=== PATIENT | male | born 1940 | race Caucasian/White ===

== ENCOUNTER 2016-04-17 11:31 | Inpatient (IN) | payer OTHER ==
[~2016-04-17] VITALS: Ht 182.9 cm; Wt 81.8 kg
[~2016-04-17 11:31] MED LIST: ACET-1311 PO; ALFU10TA30 PO; BISA10SU3 PR; CARB50TA3 PO; CGN5X PO; CHOL200010 PO; DOCU-94 PO; DPKSR500 PO; EXLP46 TOP; FURO-85 PO; LEVO125T72 PO; LORA-741 PO; LVQ750 PO; MOML PO; POTA1CAP2 PO; PRVIN525X INH; PYRI50TA77 PO; QUET1TAB34 PO
--- NOTE | 2016-04-17 12:27 | EMERGENCY ROOM VISIT NOTE ---
History Report prepared by Doug: Arden Dumont Under the Supervision of: Dr. Christie Benz M.D. First contact with patient: 12:14 Chief Complaint: EDEMA TO EXTREMITY Stated Complaint: EDEMA TO LEGS History of Present Illness The patient is a 75 year old male who presents to the Emergency Room via ALS from [facility]. He was sent to the ED for persistent right leg edema that was noticed today after he showered. The nursing staff notes that both lower extremities are swollen, but the right is worse than the left currently. The patient's HPI is limited due to dementia. Source of History: nursing staff History Limited By: dementia Onset: today after shower Position: leg (bilateral) Timing: other (persistent) Note: Other associated symptoms: swelling to both lower legs/ edema Review of Systems The patient's ROS is limited due to dementia. Past Medical & Surgical Medical Problems: (1) Bipolar 1 disorder (2) BPH (benign prostatic hyperplasia) (3) Dementia (4) Hypothyroidism (5) OCD (obsessive compulsive disorder) (6) Parkinson disease Surgical Problems: (1) History of hemorrhoidectomy Family History No pertinent family history Social History Smoking Status: Never Smoker Marital Status: Housing Status: care home Occupation Status: retired Current/Historical Medications Scheduled Benztropine Mesylate (Benztropine Mesylate), 1 TAB PO BID Cholecalciferol (Vitamin D), 2,000 INTUNIT PO QAM Divalproex Sodium (Depakote Delay Rel), 500 MG PO AMPM Furosemide (Lasix), 20 MG PO QAM Levothyroxine Sodium (Synthroid), 125 MCG PO QAM Lorazepam (Ativan), 0.5 MG PO DIRECTED Olanzapine (Zyprexa), 3.75 MG PO HS Potassium Chloride (Potassium Chloride Er), 10 MEQ PO QAM Pyridoxine Hcl (Vitamin B 6), 1 TAB PO BID Quetiapine Fumarate (Seroquel), 200 MG PO HS Senna (Senokot), 1 TAB PO DAILY Scheduled PRN Acetaminophen (Tylenol), 650 MG PO Q4 PRN for Pain or Fever Albuterol Sulf (Albuterol Sulfate), 1 VIAL INH Q4H PRN for Shortness of Breath Allergies Coded Allergies: Bacitracin (Verified Allergy, Unknown, rash, 04/17/16) Polymyxin B (Verified Allergy, Unknown, rash, 04/17/16) Oseltamivir (Verified Adverse Reaction, Unknown, mental issues, 04/17/16) Tartrazine (Verified Adverse Reaction, Unknown, mental issues, 04/17/16) Zaleplon (Verified Adverse Reaction, Unknown, mental issues, 04/17/16) Physical Exam Vital Signs Date Time Temp Pulse Resp B/P Pulse Ox O2 Delivery O2 Flow Rate FiO2 04/17/16 15:56 87 20 146/72 100 Room Air 04/17/16 14:07 90 20 115/77 99 Room Air 04/17/16 12:48 82 20 135/78 100 Room Air 04/17/16 12:06 82 04/17/16 11:36 36.5 83 18 135/78 98 Room Air Physical Exam Vital signs reviewed. General: Chronically illl-appearing male, in no significant distress. HEENT: No scleral icterus, PERRLA, neck supple. Atraumatic. Cardiovascular: Regular rate and rhythm, no extra sounds. Pulmonary: Clear to auscultation bilaterally, normal work of breathing. Abdomen: Soft, nontender, nondistended, positive bowel sounds. Musculoskeletal: Marked edema of the right greater than left lower extremity, pitting. Neurologic: Patient awake alert and oriented x 3, full strength in all 4 extremities. Cranial nerves 2 through 12 grossly intact. Baseline tremors, increased muscle tone on the upper extremities. . Skin: Warm, dry, no rash Medical Decision & Procedures ER Provider Diagnostic Interpretation: Other radiology results as stated below per my review and radiologist interpretation: BILATERAL LOWER EXTREMITY VENOUS DOPPLER CLINICAL HISTORY: R>L lower extremity edema, DVT COMPARISON STUDY: No previous studies for comparison. TECHNIQUE: Sonography of the deep venous system of the bilateral lower extremities was performed. Compression and augmentation were evaluated. FINDINGS: There is extensive deep venous thrombus within the right lower extremity with thrombus within the right common femoral, superficial femoral and popliteal veins. The calf vessels were not well evaluated on this exam. Note was made of linear echogenic material within the left superficial femoral vein which is consistent with thrombus. This thrombus may be chronic. IMPRESSION: 1. Extensive deep venous thrombus within the right common femoral, superficial femoral and popliteal veins. 2. Linear thrombus within the left superficial femoral vein. This thrombus may be chronic. Electronically signed by: Tae Grier M.D. 04/17/2016 2:53 PM Dictated Date/Time: 04/17/2016 2:51 PM Laboratory Results Test 04/17/16 12:35 Activated Partial Thromboplast Time 27.5 SECONDS (21.0-31.0) Partial Thromboplastin Ratio 1.1 Total Bilirubin 0.6 mg/dl (0.2-1) Direct Bilirubin < 0.1 mg/dl (0-0.2) Aspartate Amino Transf (AST/SGOT) 15 U/L (15-37) Alanine Aminotransferase (ALT/SGPT) 16 U/L (12-78) Alkaline Phosphatase 71 U/L (45-117) Total Protein 8.4 gm/dl (6.4-8.2) Albumin 3.0 gm/dl (3.4-5.0) Laboratory results per my review. Medications Administered Medications (Trade) Dose Ordered Sig/Hang Route Start Time Stop Time Status Last Admin Dose Admin Enoxaparin Sodium (Lovenox Inj) 80 mg NOW ONCE SQ 04/17/16 15:30 04/17/16 15:31 DC 04/17/16 15:54 80 MG ECG Indication: other Rate (beats per minute): 81 Rhythm: sinus rhythm Findings: T-wave inversion (Anterolateral), prolonged QT (504) Comparison ECG Date: poor quality baseline for interpretation ED Course 1222: Past medical records reviewed. The patient was evaluated in room C5. A complete history and physical examination was performed. 1521: Ordered Lovenox 1 per kilo. 1530: At this time, I discussed the patient's case with Dr. Gonzalo Scott and she agreed to accept the patient for further evaluation. Medical Decision Differential diagnoses: Etiologies include cellulitis, DVT, dependent edema, or acute trauma. This pt was evaluated and appeared to be in no distress. Pt has dementia and repeats most questions. RLE is markedly more edematous than the left. Dopplers of bilateral LE reveals an extensive RLE DVT into the common femoral vein. A smaller, likely chronic thrombus noted on the left. 80 mg of lovenox was ordered SQ in ED. Pt was d/w the hospitalist service. He will be evaluated for further management. Consults Time Called: 1525 Consulting Physician: Dr. Gonzalo Scott Returned Call: 1530 At this time, I discussed the patient's case with Dr. Sánchez and she agreed to accept the patient for further evaluation. Impression Primary Impression: Deep vein thrombosis (DVT) of right lower extremity Scribe Attestation The scribe's documentation has been prepared under my direction and personally reviewed by me in its entirety. I confirm that the note above accurately reflects all work, treatment, procedures, and medical decision making performed by me. Departure Information Dispostion Being Evaluated By Hospitalist Referrals Azalea Chandra D.O. (PCP) Problem Qualifiers Primary Impression: Deep vein thrombosis (DVT) of right lower extremity Affected thrombotic vein of extremity: femoral Chronicity: acute Qualified Codes: I82.411 - Acute embolism and thrombosis of right femoral vein
[2016-04-17] MEDS ORDERED: SENN-61 PO (12:41)
[2016-04-17] MEDS ORDERED: QUET1TAB37 PO (12:41)
[2016-04-17] MEDS ORDERED: DIVA500T5 PO (12:41)
[2016-04-17] MEDS ORDERED: OLAN1TAB7 PO ×2 (12:41→16:23)
[2016-04-17 12:50] LABS: BASO % 0.7 %; BASO ABS # 0.04 K/uL (0-0.2); COMPLETE YES; EOS % 5.3 %; HEMATOCRIT 43.1 % (42-52); IG% 0.5 %; LYMPH % 21.4 %; MEAN CELL VOLUME 91.3 fL (80-100); MEAN CORPUSCULAR HEMOGLOBIN 30.9 pg (25-34); MEAN CORPUSCULAR HGB CONC 33.9 g/dl (32-36); MONO % 10.1 %; PLATELET COUNT 190 K/uL (130-400); RED BLOOD COUNT 4.72 M/uL (4.7-6.1); WHITE BLOOD COUNT 5.62 K/uL (4.8-10.8)
[2016-04-17 12:59] LABS: INR 1.4 (0.9-1.1); PARTIAL THROMBOPLASTIN RATIO 1.1; PROTHROMBIN TIME (PATIENT) 15.3 SECONDS (9.0-12.0)
[2016-04-17 13:10] LABS: BLOOD UREA NITROGEN 12 mg/dl (7-18); BUN/CREATININE RATIO 12.2 (10-20); CARBON DIOXIDE 26 mmol/L (21-32); CHLORIDE 104 mmol/L (98-107); GLUCOSE 77 mg/dl (70-99); POTASSIUM 4.3 mmol/L (3.5-5.1); SODIUM 141 mmol/L (136-145)
[2016-04-17 13:12] LABS: ALKALINE PHOSPHATASE 71 U/L (45-117); ALT/SGPT 16 U/L (12-78); AST/SGOT 15 U/L (15-37)
--- NOTE | 2016-04-17 14:54 | DIAGNOSTIC IMAGING REPORT ---
BILATERAL LOWER EXTREMITY VENOUS DOPPLER CLINICAL HISTORY: R>L lower extremity edema, DVT COMPARISON STUDY: No previous studies for comparison. TECHNIQUE: Sonography of the deep venous system of the bilateral lower extremities was performed. Compression and augmentation were evaluated. FINDINGS: There is extensive deep venous thrombus within the right lower extremity with thrombus within the right common femoral, superficial femoral and popliteal veins. The calf vessels were not well evaluated on this exam. Note was made of linear echogenic material within the left superficial femoral vein which is consistent with thrombus. This thrombus may be chronic. IMPRESSION: 1. Extensive deep venous thrombus within the right common femoral, superficial femoral and popliteal veins. 2. Linear thrombus within the left superficial femoral vein. This thrombus may be chronic. Electronically signed by: Tae Grier M.D. 04/17/2016 2:53 PM Dictated Date/Time: 04/17/2016 2:51 PM
[2016-04-17] MEDS ORDERED: ENOXAPARIN 80 MG/0.8 ML SYR SQ ONE (15:30)
[2016-04-17] MEDS ORDERED: ONDANSETRON INJ 2 MG/ML 2 ML VIAL IV PRN (16:30)
[2016-04-17] MEDS ORDERED: ACETAMINOPHEN 325 MG TAB PO PRN (16:30)
[2016-04-17] MEDS ORDERED: ALBUTEROL 0.083% NEBU SOLN 3 ML VIAL INH PRN (16:45)
[2016-04-17] MEDS ORDERED: LORAZEPAM 0.5 MG TAB PO PRN (16:45)
--- NOTE | 2016-04-17 17:15 | History and Physical ---
History & Physical Date & Time of Service: Apr 17, 2016 at 16:45 Chief Complaint: Edema To Legs Primary Care Physician: Azalea Chandra D.O. History of Present Illness Source: patient This is a 75 y/o male with PMHx of Parkinson's Dz, Dementia, Hypothyroidism and other problems as outlined below who presents to the ED from [facility] c/ o RLE edema for one day. History is difficult to obtain from patient due to his dementia therefore history is obtained from previous documentation. [facility] staff noticed patient's RLE was significantly swollen this morning. Pt was not complaining of any pain. Pt is not on any blood thinner and has no previous h/o DVT or PE. In the ED, vitals are stable. Saturating 100% on room air. labs reviewed are unremarkable.Bilat LE US + extensive DVT within the R common femoral, superficial femoral and popliteal veins. Pt also has linear thrombus within the L superior femoral vein which may be chronic. He will be admitted for further evaluation and treatment. Past Medical/Surgical History Medical Problems: (1) Bipolar 1 disorder Status: Chronic (2) BPH (benign prostatic hyperplasia) Status: Chronic (3) Dementia Status: Chronic (4) Hypothyroidism Status: Chronic (5) OCD (obsessive compulsive disorder) Status: Chronic (6) Parkinson disease Status: Chronic Surgical Problems: (1) History of hemorrhoidectomy Status: Chronic Family History No pertinent family history Social History Smoking Status: Former Smoker (quit 1970) Alcohol Use: none Drug Use: none Marital Status: Housing status: senior living ([facility]) Occupational Status: retired Immunizations History of Influenza Vaccine: Yes Influenza Vaccine Date: Dec 21, 2014 Multi-Drug Resistant Organisms History of MDRO: No Allergies Coded Allergies: Bacitracin (Verified Allergy, Unknown, rash, 04/17/16) Polymyxin B (Verified Allergy, Unknown, rash, 04/17/16) Oseltamivir (Verified Adverse Reaction, Unknown, mental issues, 04/17/16) Tartrazine (Verified Adverse Reaction, Unknown, mental issues, 04/17/16) Zaleplon (Verified Adverse Reaction, Unknown, mental issues, 04/17/16) Home Medications Scheduled Benztropine Mesylate (Benztropine Mesylate), 1 TAB PO BID Cholecalciferol (Vitamin D), 2,000 INTUNIT PO QAM Divalproex Sodium (Depakote Delay Rel), 500 MG PO AMPM Furosemide (Lasix), 20 MG PO QAM Levothyroxine Sodium (Synthroid), 125 MCG PO QAM Lorazepam (Ativan), 0.5 MG PO DIRECTED Olanzapine (Zyprexa), 3.75 MG PO HS Potassium Chloride (Potassium Chloride Er), 10 MEQ PO QAM Pyridoxine Hcl (Vitamin B 6), 1 TAB PO BID Quetiapine Fumarate (Seroquel), 200 MG PO HS Senna (Senokot), 1 TAB PO DAILY Scheduled PRN Acetaminophen (Tylenol), 650 MG PO Q4 PRN for Pain or Fever Albuterol Sulf (Albuterol Sulfate), 1 VIAL INH Q4H PRN for Shortness of Breath Review of Systems Unable to obtain ROS due to AMS Physical Exam Vital Signs Date Time Temp Pulse Resp B/P Pulse Ox O2 Delivery O2 Flow Rate FiO2 04/17/16 15:56 87 20 146/72 100 Room Air 04/17/16 14:07 90 20 115/77 99 Room Air 04/17/16 12:48 82 20 135/78 100 Room Air 04/17/16 12:06 82 04/17/16 11:36 36.5 83 18 135/78 98 Room Air General Appearance: WD/WN, no apparent distress, + pertinent finding (Pt is laying comfortably in bed ) Head: normocephalic, atraumatic Eyes: normal inspection ENT: hearing grossly normal Neck: supple Respiratory/Chest: chest non-tender, lungs clear (auscultated anteriorly), normal breath sounds, no respiratory distress Cardiovascular: regular rate, rhythm, no edema, no murmur Abdomen/GI: normal bowel sounds, non tender, soft Back: normal inspection Extremities/Musculoskelatal: no calf tenderness, + pertinent finding (RLE swelling extending from thigh into foot; skin appears mottled ) Neurologic/Psych: alert, + pertinent finding (dementia) Skin: normal color, warm/dry Diagnostics Laboratory Results Results Past 24 Hours Test 04/17/16 12:35 Range/Units White Blood Count 5.62 4.8-10.8 K/uL Red Blood Count 4.72 4.7-6.1 M/uL Hemoglobin 14.6 14.0-18.0 g/dL Hematocrit 43.1 42-52 % Mean Corpuscular Volume 91.3 80-100 fL Mean Corpuscular Hemoglobin 30.9 25-34 pg Mean Corpuscular Hemoglobin Concent 33.9 32-36 g/dl Platelet Count 190 130-400 K/uL Mean Platelet Volume 11.0 7.4-10.4 fL Neutrophils (%) (Auto) 62.0 % Lymphocytes (%) (Auto) 21.4 % Monocytes (%) (Auto) 10.1 % Eosinophils (%) (Auto) 5.3 % Basophils (%) (Auto) 0.7 % Neutrophils # (Auto) 3.48 1.4-6.5 K/uL Lymphocytes # (Auto) 1.20 1.2-3.4 K/uL Monocytes # (Auto) 0.57 0.11-0.59 K/uL Eosinophils # (Auto) 0.30 0-0.5 K/uL Basophils # (Auto) 0.04 0-0.2 K/uL RDW Standard Deviation 47.9 36.4-46.3 fL RDW Coefficient of Variation 14.2 11.5-14.5 % Immature Granulocyte % (Auto) 0.5 % Immature Granulocyte # (Auto) 0.03 0.00-0.02 K/uL Prothrombin Time 15.3 9.0-12.0 SECONDS Prothromb Time International Ratio 1.4 0.9-1.1 Activated Partial Thromboplast Time 27.5 21.0-31.0 SECONDS Partial Thromboplastin Ratio 1.1 Sodium Level 141 136-145 mmol/L Potassium Level 4.3 3.5-5.1 mmol/L Chloride Level 104 98-107 mmol/L Carbon Dioxide Level 26 21-32 mmol/L Anion Gap 11.0 3-11 mmol/L Blood Urea Nitrogen 12 7-18 mg/dl Creatinine 1.00 0.60-1.40 mg/dl Est Creatinine Clear Calc Drug Dose 70.1 ml/min Estimated GFR () 85.0 Estimated GFR (Non- 73.3 BUN/Creatinine Ratio 12.2 10-20 Random Glucose 77 70-99 mg/dl Calcium Level 9.0 8.5-10.1 mg/dl Total Bilirubin 0.6 0.2-1 mg/dl Direct Bilirubin < 0.1 0-0.2 mg/dl Aspartate Amino Transf (AST/SGOT) 15 15-37 U/L Alanine Aminotransferase (ALT/SGPT) 16 12-78 U/L Alkaline Phosphatase 71 45-117 U/L Total Protein 8.4 6.4-8.2 gm/dl Albumin 3.0 3.4-5.0 gm/dl Diagnostic Radiology BILAT LE US IMPRESSION: 1. Extensive deep venous thrombus within the right common femoral, superficial femoral and popliteal veins. 2. Linear thrombus within the left superficial femoral vein. This thrombus may be chronic. EKG EKG: NSR at 81 bpm with LVH and ST depression in anterior leads; ST depression is less pronounced when compared to EKG from 12/23/15 Impression Assessment and Plan BILATERAL DVT (R>L) pt presented from [facility] with RLE swelling; no prior h/o DVT/PE -admit to med/surg -vitals are stable; pt is saturating well on room air Bilat LE US + extensive DVT within the R common femoral, superficial femoral and popliteal veins. Pt also has linear thrombus within the L superior femoral vein which may be chronic (see above for full report) -will hold off on chest CT as patient is not SOB or hypoxic -start Coumadin; bridge with Lovenox for 5 days -monitor INR daily -apply [employer] bilat -monitor PARKINSON'S DISEASE -cont Sinemet DEMENTIA/OCD/BIPOLAR -cont Depakote, Seroquel, Cogentin and Zyprexa -pt follows with psych, Dr Owusu HYPOTHYROIDISM -cont levothyroxine DVT PROPHYLAXIS -starting Coumadin; bridging with Lovenox; monitor INR CODE STATUS -Patient is a DNR per senior living documentation DISPO -Expect to return to [facility] once medically stable. Pt seen in collaboration with Dr. Sánchez. Please see her addendum for further details. Thanks! ATTENDING ADDENDUM Record reviewed. Patient interviewed and examined. I agree with the assessment and plan as stated above. Mr. Romero was admitted for obs mainly because of the extensiveness of the swelling and clot, and with his history of dementia and other psych issues, to ensure he was stable on current therapy. Anticipate discharge to senior living tomorrow or following day. Care coordinated with Wendi Salazar PA-C. Please refer to her documentation for patient's history. Maria A Sánchez, Hospitalist Level of Care Med/Surg Resuscitation Status DO NOT RESUSCITATE VTE Prophylaxis VTE Risk Assessment Done? Y/N: Yes Risk Level: Moderate Given or contraindicated: Enoxaparin (Lovenox)SQ Social Service Consult Lives in Personal Care
[2016-04-17 19:50] VITALS: BP 150/78; PULSE 89; TEMP 36.5; O2SAT 97
[2016-04-17 19:51] VITALS: BP 150/78; PULSE 89; TEMP 36.5; O2SAT 97; Ht 182.9 cm; Wt 81.8 kg
[2016-04-17] MEDS ORDERED: WARFARIN SOD 5 MG TAB PO ONE (20:00)
[2016-04-17] MEDS ORDERED: BENZTROPINE MESYLATE 0.5 MG TAB PO SCH (21:00)
[2016-04-17] MEDS: PYRIDOXINE HCL 50 MG TAB PO SCH (21:19)
[2016-04-17] MEDS: DIVALPROEX SODIUM 500 MG DELAY RELEASE TAB PO SCH (21:19)
[2016-04-17] MEDS: QUETIAPINE FUMARATE 200 MG TAB PO SCH (21:19)
[2016-04-17] MEDS: OLANZAPINE 2.5 MG TAB PO SCH (21:20)
[2016-04-17] MEDS: BENZTROPINE MESYLATE 0.5 MG TAB PO SCH (21:20)
[2016-04-18 03:00] VITALS: O2SAT 97
[2016-04-18] MEDS: LEVOTHYROXINE 125 MCG TAB PO SCH (05:54)
[2016-04-18] MEDS: ENOXAPARIN 80 MG/0.8 ML SYR SQ SCH ×2 (05:56→19:33)
[2016-04-18 07:17] LABS: HEMATOCRIT 43.8 % (42-52); MEAN CELL VOLUME 91.3 fL (80-100); MEAN PLATELET VOLUME 11.1 fL (7.4-10.4); PLATELET COUNT 166 K/uL (130-400); WHITE BLOOD COUNT 4.38 K/uL (4.8-10.8)
[2016-04-18 07:22] LABS: INR 1.5 (0.9-1.1); PROTHROMBIN TIME (PATIENT) 16.1 SECONDS (9.0-12.0)
[2016-04-18 07:36] VITALS: BP 130/77; PULSE 72; TEMP 36.1; O2SAT 96
[2016-04-18 07:48] LABS: BUN/CREATININE RATIO 14.8 (10-20); CREATININE 0.98 mg/dl (0.60-1.40)
[2016-04-18] MEDS: SENNA 8.6 MG TAB PO SCH (07:53)
[2016-04-18] MEDS: FUROSEMIDE 20 MG TAB PO SCH (07:53)
[2016-04-18] MEDS: CHOLECALCIFEROL 1000 INTER.UNIT TAB PO SCH (07:54)
[2016-04-18] MEDS: BENZTROPINE MESYLATE 0.5 MG TAB PO SCH ×2 (07:54→20:36)
[2016-04-18] MEDS: DIVALPROEX SODIUM 500 MG DELAY RELEASE TAB PO SCH ×2 (07:54→20:36)
[2016-04-18] MEDS: PYRIDOXINE HCL 50 MG TAB PO SCH ×2 (07:54→20:36)
[2016-04-18] MEDS: POTASSIUM CHLORIDE 10 MEQ TABCR PO SCH (07:54)
[2016-04-18] MEDS ORDERED: INFLUENZA VIRUS QUAD VACCINE 0.5 ML SYR IM. ONE (08:00)
[2016-04-18] MEDS ORDERED: INFLUENZA ADMINISTRATION CHARGE ONE (08:00)
--- NOTE | 2016-04-18 14:36 | Progress Note ---
Internal Med Progress Note Date of Service: Apr 18, 2016. Provider Documentation: SUBJECTIVE: Patient is seen and examined. Could not obtain any information from patient- has dementia. Repeats the questions asked. OBJECTIVE: Vital Signs-as noted below Physical Exam: General Appearance:Moderately built and nourished, no apparent distress Head: normocephalic, Atraumatic Eyes: normal inspection, EOMI, PERRLA Neck: supple, no JVD, Trachea midline Respiratory/Chest: Normal breath sounds, CTA, No accessory muscle use Cardiovascular: S1, S2, No murmur Abdomen/GI:Soft, Non tender, Bowel sounds present Extremities/Musculoskelatal:RLE swelling extending from thigh into foot Neurologic/Psych:+ Dementia, no focal neurological deficits Skin: normal color, warm Lab data as noted below. ASSESSMENT & PLAN: BILATERAL DVT (R>L) Patient presented with RLE swelling; no prior h/o DVT/PE B/L LE US + extensive DVT within the R common femoral, superficial femoral and popliteal veins. Pt also has linear thrombus within the L superior femoral vein which may be chronic Continue Coumadin; bridge with Lovenox for 5 days monitor INR daily INR:1.5 today PARKINSON'S DISEASE continue Sinemet DEMENTIA/OCD/BIPOLAR continue Depakote, Seroquel, Cogentin and Zyprexa Follows with psych, Dr Owusu HYPOTHYROIDISM continue levothyroxine DVT PX On Coumadin and Lovenox CODE STATUS DNR per [facility] documentation DISPO Plan to DC to [facility] in next 48 hours if medically stable. Vital Signs: Date Time Temp Pulse Resp B/P Pulse Ox O2 Delivery O2 Flow Rate FiO2 04/18/16 08:00 Room Air 04/18/16 07:36 36.1 72 22 130/77 96 Room Air 04/18/16 03:00 97 Room Air 04/17/16 19:51 36.5 89 20 150/78 97 Room Air 04/17/16 19:50 36.5 89 20 150/78 97 Room Air 04/17/16 19:01 88 18 142/108 97 04/17/16 17:41 86 18 115/86 98 Room Air 04/17/16 16:56 89 04/17/16 15:56 87 20 146/72 100 Room Air Lab Results: Results Past 24 Hours Test 04/18/16 06:55 Range/Units White Blood Count 4.38 4.8-10.8 K/uL Red Blood Count 4.80 4.7-6.1 M/uL Hemoglobin 14.9 14.0-18.0 g/dL Hematocrit 43.8 42-52 % Mean Corpuscular Volume 91.3 80-100 fL Mean Corpuscular Hemoglobin 31.0 25-34 pg Mean Corpuscular Hemoglobin Concent 34.0 32-36 g/dl RDW Standard Deviation 48.3 36.4-46.3 fL RDW Coefficient of Variation 14.3 11.5-14.5 % Platelet Count 166 130-400 K/uL Mean Platelet Volume 11.1 7.4-10.4 fL Prothrombin Time 16.1 9.0-12.0 SECONDS Prothromb Time International Ratio 1.5 0.9-1.1 Sodium Level 142 136-145 mmol/L Potassium Level 4.0 3.5-5.1 mmol/L Chloride Level 106 98-107 mmol/L Carbon Dioxide Level 26 21-32 mmol/L Anion Gap 10.0 3-11 mmol/L Blood Urea Nitrogen 14 7-18 mg/dl Creatinine 0.98 0.60-1.40 mg/dl Est Creatinine Clear Calc Drug Dose 71.5 ml/min Estimated GFR () 87.1 Estimated GFR (Non- 75.1 BUN/Creatinine Ratio 14.8 10-20 Random Glucose 80 70-99 mg/dl Calcium Level 9.0 8.5-10.1 mg/dl
[2016-04-18 15:23] VITALS: BP 147/78; PULSE 93; TEMP 36.6; O2SAT 97
[2016-04-18 16:00] VITALS: O2SAT 97
[2016-04-18] MEDS ORDERED: WARFARIN SOD 5 MG TAB PO SCH (16:00)
[2016-04-18] MEDS: QUETIAPINE FUMARATE 200 MG TAB PO SCH (20:36)
[2016-04-18] MEDS: OLANZAPINE 2.5 MG TAB PO SCH (20:36)
[2016-04-19] VITALS: BP 135/86; PULSE 89; TEMP 36.8; O2SAT 92
[2016-04-19] MEDS: ENOXAPARIN 80 MG/0.8 ML SYR SQ SCH (06:25)
[2016-04-19] MEDS: LEVOTHYROXINE 125 MCG TAB PO SCH (06:25)
[2016-04-19 07:50] VITALS: BP 124/60; PULSE 77; TEMP 36.5; O2SAT 94
[2016-04-19 07:57] LABS: BASO ABS # 0.04 K/uL (0-0.2); COMPLETE YES; EOS % 3.6 %; IG% 0.5 %; LYMPH % 32.1 %; LYMPH ABS # 1.34 K/uL (1.2-3.4); MEAN CELL VOLUME 91.1 fL (80-100); MONO % 11.2 %; NEUT % 51.6 %; PLATELET COUNT 181 K/uL (130-400); RED BLOOD COUNT 4.61 M/uL (4.7-6.1); WHITE BLOOD COUNT 4.18 K/uL (4.8-10.8)
[2016-04-19 08:08] LABS: PROTHROMBIN TIME (PATIENT) 58.9 SECONDS (9.0-12.0)
[2016-04-19 08:10] LABS: INR 5.1 (0.9-1.1)
[2016-04-19] MEDS: SENNA 8.6 MG TAB PO SCH (08:14)
[2016-04-19] MEDS: PYRIDOXINE HCL 50 MG TAB PO SCH ×2 (08:14→20:14)
[2016-04-19] MEDS: BENZTROPINE MESYLATE 0.5 MG TAB PO SCH ×2 (08:15→20:15)
[2016-04-19] MEDS: DIVALPROEX SODIUM 500 MG DELAY RELEASE TAB PO SCH ×2 (08:15→20:15)
[2016-04-19] MEDS: POTASSIUM CHLORIDE 10 MEQ TABCR PO SCH (08:15)
[2016-04-19] MEDS: FUROSEMIDE 20 MG TAB PO SCH (08:15)
[2016-04-19] MEDS: CHOLECALCIFEROL 1000 INTER.UNIT TAB PO SCH (08:16)
[2016-04-19 08:26] LABS: BUN/CREATININE RATIO 16.4 (10-20); CALCIUM 9.2 mg/dl (8.5-10.1); POTASSIUM 3.8 mmol/L (3.5-5.1)
[2016-04-19 10:05] VITALS: O2SAT 94
[2016-04-19 11:21] LABS: PROTHROMBIN TIME (PATIENT) 74.1 SECONDS (9.0-12.0)
[2016-04-19 11:28] LABS: INR 6.4 (0.9-1.1)
[2016-04-19] MEDS ORDERED: NURSING VERBAL MED ORDER ONE (11:45)
[2016-04-19 15:32] VITALS: BP 148/70; PULSE 16; PULSE 79; TEMP 36.4; O2SAT 98
[2016-04-19] MEDS ORDERED: PHYTONADIONE 5 MG TAB PO ONE (15:45)
--- NOTE | 2016-04-19 16:38 | Progress Note ---
Internal Med Progress Note Date of Service: Apr 19, 2016. Provider Documentation: SUBJECTIVE: Patient is seen and examined. Denies any chest pain, SOB, History may not be reliable given dementia . No signs of active bleeding noted. Seems to be comfortable in bed. OBJECTIVE: Vital Signs-as noted below Physical Exam: General Appearance:Moderately built and nourished, no apparent distress Head: normocephalic, Atraumatic Eyes: normal inspection, EOMI, PERRLA Neck: supple, no JVD, Trachea midline Respiratory/Chest: Normal breath sounds, CTA, No accessory muscle use Cardiovascular: S1, S2, No murmur Abdomen/GI:Soft, Non tender, Bowel sounds present Extremities/Musculoskelatal:RLE swelling extending from thigh into foot Neurologic/Psych:+ Dementia, no focal neurological deficits Skin: normal color, warm Lab data as noted below. ASSESSMENT & PLAN: BILATERAL DVT (R>L) Patient presented with RLE swelling; no prior h/o DVT/PE B/L LE US + extensive DVT within the R common femoral, superficial femoral and popliteal veins. Pt also has linear thrombus within the L superior femoral vein which may be chronic monitor INR daily INR:6.4 today Hold Coumadin, Lovenox for now Vit K 2.5 mg today SUPRA THERAPEUTIC INR: INR 6.4 today Vit K given Hold all anticoagulants Monitor INR PARKINSON'S DISEASE continue Sinemet DEMENTIA/OCD/BIPOLAR continue Depakote, Seroquel, Cogentin and Zyprexa Follows with psych, Dr Owusu HYPOTHYROIDISM continue levothyroxine DVT PX On Coumadin and Lovenox CODE STATUS DNR per alf documentation DISPO Plan to [place] to [facility] once medically stable. Vital Signs: Date Time Temp Pulse Resp B/P Pulse Ox O2 Delivery O2 Flow Rate FiO2 04/19/16 15:32 36.4 79 16 148/70 98 Room Air 04/19/16 15:30 Room Air 04/19/16 10:05 94 Room Air 04/19/16 07:50 36.5 77 14 124/60 94 Room Air 04/19/16 07:34 Room Air 04/19/16 00:00 Room Air 04/19/16 00:00 36.8 89 20 135/86 92 Room Air Lab Results: Results Past 24 Hours Test 04/19/16 06:42 04/19/16 07:42 04/19/16 10:50 Range/Units Prothrombin Time 58.9 74.1 9.0-12.0 SECONDS Prothromb Time International Ratio 5.1 6.4 0.9-1.1 Sodium Level 143 136-145 mmol/L Potassium Level 3.8 3.5-5.1 mmol/L Chloride Level 106 98-107 mmol/L Carbon Dioxide Level 27 21-32 mmol/L Anion Gap 10.0 3-11 mmol/L Blood Urea Nitrogen 16 7-18 mg/dl Creatinine 1.00 0.60-1.40 mg/dl Est Creatinine Clear Calc Drug Dose 70.1 ml/min Estimated GFR () 85.0 Estimated GFR (Non- 73.3 BUN/Creatinine Ratio 16.4 10-20 Random Glucose 85 70-99 mg/dl Calcium Level 9.2 8.5-10.1 mg/dl White Blood Count 4.18 4.8-10.8 K/uL Red Blood Count 4.61 4.7-6.1 M/uL Hemoglobin 14.3 14.0-18.0 g/dL Hematocrit 42.0 42-52 % Mean Corpuscular Volume 91.1 80-100 fL Mean Corpuscular Hemoglobin 31.0 25-34 pg Mean Corpuscular Hemoglobin Concent 34.0 32-36 g/dl Platelet Count 181 130-400 K/uL Mean Platelet Volume 11.0 7.4-10.4 fL Neutrophils (%) (Auto) 51.6 % Lymphocytes (%) (Auto) 32.1 % Monocytes (%) (Auto) 11.2 % Eosinophils (%) (Auto) 3.6 % Basophils (%) (Auto) 1.0 % Neutrophils # (Auto) 2.16 1.4-6.5 K/uL Lymphocytes # (Auto) 1.34 1.2-3.4 K/uL Monocytes # (Auto) 0.47 0.11-0.59 K/uL Eosinophils # (Auto) 0.15 0-0.5 K/uL Basophils # (Auto) 0.04 0-0.2 K/uL RDW Standard Deviation 48.2 36.4-46.3 fL RDW Coefficient of Variation 14.4 11.5-14.5 % Immature Granulocyte % (Auto) 0.5 % Immature Granulocyte # (Auto) 0.02 0.00-0.02 K/uL
[2016-04-19] MEDS: OLANZAPINE 2.5 MG TAB PO SCH (20:14)
[2016-04-19] MEDS: QUETIAPINE FUMARATE 200 MG TAB PO SCH (20:14)
[2016-04-19 23:16] VITALS: BP 133/77; PULSE 76; TEMP 36.2; O2SAT 98
[2016-04-20] MEDS: LEVOTHYROXINE 125 MCG TAB PO SCH (06:29)
[2016-04-20 07:00] VITALS: BP 121/78; PULSE 75; TEMP 36.8; O2SAT 93
[2016-04-20] MEDS: CHOLECALCIFEROL 1000 INTER.UNIT TAB PO SCH (08:25)
[2016-04-20] MEDS: BENZTROPINE MESYLATE 0.5 MG TAB PO SCH (08:25)
[2016-04-20] MEDS: DIVALPROEX SODIUM 500 MG DELAY RELEASE TAB PO SCH (08:25)
[2016-04-20] MEDS: POTASSIUM CHLORIDE 10 MEQ TABCR PO SCH (08:25)
[2016-04-20] MEDS: FUROSEMIDE 20 MG TAB PO SCH (08:25)
[2016-04-20] MEDS: PYRIDOXINE HCL 50 MG TAB PO SCH (08:25)
[2016-04-20] MEDS: SENNA 8.6 MG TAB PO SCH (08:25)
[2016-04-20 09:28] LABS: BASO % 0.5 %; BASO ABS # 0.02 K/uL (0-0.2); COMPLETE YES; EOS % 4.1 %; HEMATOCRIT 42.2 % (42-52); IG% 0.9 %; LYMPH % 27.5 %; LYMPH ABS # 1.22 K/uL (1.2-3.4); MEAN CELL VOLUME 89.4 fL (80-100); MEAN CORPUSCULAR HEMOGLOBIN 30.1 pg (25-34); MEAN CORPUSCULAR HGB CONC 33.6 g/dl (32-36); MEAN PLATELET VOLUME 10.9 fL (7.4-10.4); MONO % 8.6 %; NEUT % 58.4 %; PLATELET COUNT 184 K/uL (130-400); RED BLOOD COUNT 4.72 M/uL (4.7-6.1); WHITE BLOOD COUNT 4.44 K/uL (4.8-10.8)
[2016-04-20 09:34] LABS: INR 1.8 (0.9-1.1); PROTHROMBIN TIME (PATIENT) 19.8 SECONDS (9.0-12.0)
[2016-04-20 09:51] LABS: CALCIUM 9.1 mg/dl (8.5-10.1); CREATININE 0.98 mg/dl (0.60-1.40); POTASSIUM 3.7 mmol/L (3.5-5.1)
--- NOTE | 2016-04-20 12:28 | Progress Note ---
Internal Med Progress Note Date of Service: Apr 20, 2016. Provider Documentation: SUBJECTIVE: Patient is seen and examined. Offers no complaints. History may not be reliable given dementia. Seemed to be comfortable lying in bed. OBJECTIVE: Vital Signs-as noted below Physical Exam: General Appearance:Moderately built and nourished, no apparent distress Head: normocephalic, Atraumatic Eyes: normal inspection, EOMI, PERRLA Neck: supple, no JVD, Trachea midline Respiratory/Chest: Normal breath sounds, CTA, No accessory muscle use Cardiovascular: S1, S2, No murmur Abdomen/GI:Soft, Non tender, Bowel sounds present Extremities/Musculoskelatal:RLE swelling extending from thigh into foot Neurologic/Psych:+ Dementia, no focal neurological deficits Skin: normal color, warm Lab data as noted below. ASSESSMENT & PLAN: BILATERAL DVT (R>L) Patient presented with RLE swelling; no prior h/o DVT/PE B/L LE US + extensive DVT within the R common femoral, superficial femoral and popliteal veins. Pt also has linear thrombus within the L superior femoral vein which may be chronic monitor INR daily INR:6.4 yesterday >>>>>1.8 today Held Coumadin, Lovenox on 04/19/16 S/P Vit K 2.5 mg on 04/19/16 Will resume Coumadin today: 1mg today Needs daily INR check for further coumadin dosage. SUPRA THERAPEUTIC INR: INR 6.4 on 04/19/16>>>> Resolved Vit K given yesterday Will resume coumadin today Monitor INR PARKINSON'S DISEASE continue Sinemet DEMENTIA/OCD/BIPOLAR continue Depakote, Seroquel, Cogentin and Zyprexa Follows with psych, Dr Owusu HYPOTHYROIDISM continue levothyroxine DVT PX On Coumadin and Lovenox CODE STATUS DNR per detention documentation DISPO Plan to DC to [facility] today Needs daily INR check for coumadin dosage Follow up with your physician at [facility] 's office will call for follow up appointment. Vital Signs: Date Time Temp Pulse Resp B/P Pulse Ox O2 Delivery O2 Flow Rate FiO2 04/20/16 08:30 Room Air 04/20/16 07:00 36.8 75 16 121/78 93 Room Air 04/20/16 00:47 Room Air 04/19/16 23:16 36.2 76 20 133/77 98 Room Air 04/19/16 15:32 36.4 79 16 148/70 98 Room Air 04/19/16 15:30 Room Air Lab Results: Results Past 24 Hours Test 04/20/16 08:55 Range/Units White Blood Count 4.44 4.8-10.8 K/uL Red Blood Count 4.72 4.7-6.1 M/uL Hemoglobin 14.2 14.0-18.0 g/dL Hematocrit 42.2 42-52 % Mean Corpuscular Volume 89.4 80-100 fL Mean Corpuscular Hemoglobin 30.1 25-34 pg Mean Corpuscular Hemoglobin Concent 33.6 32-36 g/dl Platelet Count 184 130-400 K/uL Mean Platelet Volume 10.9 7.4-10.4 fL Neutrophils (%) (Auto) 58.4 % Lymphocytes (%) (Auto) 27.5 % Monocytes (%) (Auto) 8.6 % Eosinophils (%) (Auto) 4.1 % Basophils (%) (Auto) 0.5 % Neutrophils # (Auto) 2.60 1.4-6.5 K/uL Lymphocytes # (Auto) 1.22 1.2-3.4 K/uL Monocytes # (Auto) 0.38 0.11-0.59 K/uL Eosinophils # (Auto) 0.18 0-0.5 K/uL Basophils # (Auto) 0.02 0-0.2 K/uL RDW Standard Deviation 46.3 36.4-46.3 fL RDW Coefficient of Variation 14.1 11.5-14.5 % Immature Granulocyte % (Auto) 0.9 % Immature Granulocyte # (Auto) 0.04 0.00-0.02 K/uL Prothrombin Time 19.8 9.0-12.0 SECONDS Prothromb Time International Ratio 1.8 0.9-1.1 Sodium Level 142 136-145 mmol/L Potassium Level 3.7 3.5-5.1 mmol/L Chloride Level 105 98-107 mmol/L Carbon Dioxide Level 28 21-32 mmol/L Anion Gap 9.0 3-11 mmol/L Blood Urea Nitrogen 13 7-18 mg/dl Creatinine 0.98 0.60-1.40 mg/dl Est Creatinine Clear Calc Drug Dose 71.5 ml/min Estimated GFR () 87.1 Estimated GFR (Non- 75.1 BUN/Creatinine Ratio 13.0 10-20 Random Glucose 73 70-99 mg/dl Calcium Level 9.1 8.5-10.1 mg/dl
[2016-04-20] MEDS ORDERED: WARF2TAB PO (12:31)
[2016-04-20 12:34] VITALS: BP 121/78; PULSE 75; TEMP 36.8; O2SAT 93
--- NOTE | 2016-04-20 12:34 | Discharge Summary ---
Discharge Summary Admission Date: Apr 17, 2016 at 16:28 Discharge Date: Apr 20, 2016 Discharge Disposition: nursing home facility Principal Diagnosis: B/L Lower extremity DVT Procedures: Venous Doppler: 1. Extensive deep venous thrombus within the right common femoral, superficial femoral and popliteal veins. 2. Linear thrombus within the left superficial femoral vein. This thrombus may be chronic. Pending Studies/Follow-Up: Needs daily INR check for Coumadin dosage Follow up with your physician at [facility] 's office will call for follow up appointment Medication Reconciliation New Medications: Warfarin Sodium (Coumadin) 2 Mg Tab 1 MG PO DAILY for 90 Days, #45 TAB Continued Medications: Acetaminophen (Tylenol) 325 Mg Tab 650 MG PO Q4 PRN for Pain or Fever, TAB Albuterol Sulf (Albuterol Sulfate) 2.5 Mg/0.5 Ml Nebu 1 VIAL INH Q4H PRN for Shortness of Breath Benztropine Mesylate (Benztropine Mesylate) 0.5 Mg Tab 1 TAB PO BID Cholecalciferol (Vitamin D) 2,000 Unit Cap 2000 INTUNIT PO QAM Divalproex Sodium (Depakote Delay Rel) 500 Mg Tab 500 MG PO AMPM, TAB Furosemide (Lasix) 20 Mg Tab 20 MG PO QAM, TAB Levothyroxine Sodium (Synthroid) 125 Mcg Tab 125 MCG PO QAM, TAB Lorazepam (Ativan) 0.5 Mg Tab 0.5 MG PO DIRECTED for Anxiety, TAB 1 HOUR PRIOR TO DEPARTURE FOR APPT. MAY REPEAT IN 60 MIN IF STILL NEEDED Olanzapine (Zyprexa) 2.5 Mg Tab 3.75 MG PO HS, TAB Potassium Chloride (Potassium Chloride Er) 10 Meq Cap 10 MEQ PO QAM Pyridoxine Hcl (Vitamin B 6) 50 Mg Tab 1 TAB PO BID Quetiapine Fumarate (Seroquel) 100 Mg Tab 200 MG PO HS, #20 TAB Senna (Senokot) 8.6 Mg Tab 1 TAB PO DAILY, TAB Admission Information HPI (per Admitting provider): This is a 75 y/o male with PMHx of Parkinson's Dz, Dementia, Hypothyroidism and other problems as outlined below who presents to the ED from [facility] c/ o RLE edema for one day. History is difficult to obtain from patient due to his dementia therefore history is obtained from previous documentation. [facility] staff noticed patient's RLE was significantly swollen this morning. Pt was not complaining of any pain. Pt is not on any blood thinner and has no previous h/o DVT or PE. In the ED, vitals are stable. Saturating 100% on room air. labs reviewed are unremarkable.Bilat LE US + extensive DVT within the R common femoral, superficial femoral and popliteal veins. Pt also has linear thrombus within the L superior femoral vein which may be chronic. He will be admitted for further evaluation and treatment. Physical Exam (per Admitting): General Appearance: WD/WN, no apparent distress, + pertinent finding (Pt is laying comfortably in bed ) Head: normocephalic, atraumatic Eyes: normal inspection ENT: hearing grossly normal Neck: supple Respiratory/Chest: chest non-tender, lungs clear (auscultated anteriorly), normal breath sounds, no respiratory distress Cardiovascular: regular rate, rhythm, no edema, no murmur Abdomen/GI: normal bowel sounds, non tender, soft Back: normal inspection Extremities/Musculoskelatal: no calf tenderness, + pertinent finding (RLE swelling extending from thigh into foot; skin appears mottled ) Neurologic/Psych: alert, + pertinent finding (dementia) Skin: normal color, warm/dry Hospital Course BILATERAL DVT (R>L) Patient presented with RLE swelling; no prior h/o DVT/PE B/L LE US + extensive DVT within the R common femoral, superficial femoral and popliteal veins. Pt also has linear thrombus within the L superior femoral vein which may be chronic monitor INR daily INR:6.4 yesterday >>>>>1.8 today Held Coumadin, Lovenox on 04/19/16 S/P Vit K 2.5 mg on 04/19/16 Will resume Coumadin today: 1mg today Needs daily INR check for further coumadin dosage. SUPRA THERAPEUTIC INR: INR 6.4 on 04/19/16>>>> Resolved Vit K given yesterday Will resume coumadin today Monitor INR PARKINSON'S DISEASE continue Sinemet DEMENTIA/OCD/BIPOLAR continue Depakote, Seroquel, Cogentin and Zyprexa Follows with psych, Dr Owusu HYPOTHYROIDISM continue levothyroxine DVT PX On Coumadin and Lovenox CODE STATUS DNR per halfway documentation DISPO Plan to DC to [facility] today Needs daily INR check for coumadin dosage Follow up with your physician at [facility] 's office will call for follow up appointment. Total time spent on discharge = This includes examination of the patient, discharge planning, medication reconciliation, and communication with other providers. Discharge Instructions Discharge Instructions Admission Reason for Admission: Dvt Of Right Lower Extremity Discharge Discharge Diagnosis / Problem: B/L Lower extremity DVT Discharge Goals Goal(s): Decrease discomfort, Improve function Activity Recommendations Activity Limitations: resume your previous activity Exercise/Sports Limitations: as tolerated . Instructions / Follow-Up Instructions / Follow-Up Plan to DC to [facility] today Needs daily INR check for Coumadin dosage Follow up with your physician at [facility] 's office will call for follow up appointment Take 1mg Coumadin today Current Hospital Diet Patient's current hospital diet: Regular Diet Discharge Diet Recommended Diet: Regular Diet Pending Studies Studies pending at discharge: no Medical Emergencies . Who to Call and When: Medical Emergencies: If at any time you feel your situation is an emergency, please call 911 immediately. . Non-Emergent Contact Non-Emergency issues call your: Primary Care Provider Call Non-Emergent contact if: you have a fever, your pain is worsening, you have any medication questions . . "Provider Documentation" section prepared by Sharif Agosto. VTE Core Measure Inpt VTE Proph given/why not?: Enoxaparin (Lovenox)SQ
== END 2016-04-20 13:41 | DRG 301 ==
LOC: ENRESERVTM → ENRESERVDT → EDBD 11:31 → C.EDC 11:32 → C.MS2W 16:28
PROVIDERS: ADMIT Hospitalist; ATTEND Internal Medicine
DX: I82.411 Acute embolism and thrombosis of right femoral vein (principal); G20 Parkinson's disease; F03.90 Unspecified dementia, unspecified severity, without behavioral disturbance, psychotic disturbance, mood disturbance, and anxiety; E03.9 Hypothyroidism, unspecified; F31.9 Bipolar disorder, unspecified; N40.0 Benign prostatic hyperplasia without lower urinary tract symptoms; F42.9 Obsessive-compulsive disorder, unspecified; Z87.891 Personal history of nicotine dependence; Z79.899 Other long term (current) drug therapy; Z66 Do not resuscitate; I82.431 Acute embolism and thrombosis of right popliteal vein; I82.412 Acute embolism and thrombosis of left femoral vein